=== PATIENT | female | born 1960 | race Caucasian/White ===

== ENCOUNTER 2022-07-11 04:08 | Emergency (ER) | payer MEDICARE, OTHER ==
[~2022-07-11] VITALS: Ht 149.9 cm; Wt 40.8 kg
[~2022-07-11 04:08] MED LIST: NORCO 10-325 T1 EACH PO; NORCO 5-325 TA1 EACH PO
[2022-07-11] MEDS ORDERED: CYCLOBENZAPRINE10 MG PO ×2 (05:53→06:17)
== END 2022-07-11 06:01 | disposition home or self-care (01) ==
LOC: ED 04:08
DX: S16.1XXA Strain of muscle, fascia and tendon at neck level, initial encounter (principal); W18.2XXA Fall in (into) shower or empty bathtub, initial encounter; F17.200 Nicotine dependence, unspecified, uncomplicated
CPT/HCPCS: 72040; 96372; 99283-25; J1885; J3360

== ENCOUNTER 2023-08-23 16:11 | Emergency (ER) | payer MEDICARE, OTHER ==
[~2023-08-23] VITALS: Ht 149.9 cm; Wt 38.6 kg
[~2023-08-23 16:11] MED LIST changes: +CYCLOBENZAPRINE10 MG PO
--- OUTSIDE RECORDS SUMMARY | 2023-08-23 16:14 | XMS ---
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 E.DSultana VISIT COUNT (12 MO.) 3 Stoney Cope) 1 OCTAVIO Marie TOTAL 4 NOTE: Visits indicate total known visits. ED/UCC VISIT TRACKING (12 MO.) 08/23/2023 16:12 [facility] [place] TYPE: Emergency COMPLAINT: - SKIN PROBLEM 02/28/2023 10:09 [facility] Anatoliy [facility]ART[facility] (Anatoliy Cope) TYPE: Emergency DIAGNOSES: - Cervicalgia - ambulance - Neck Pain 02/07/2023 06:38 [facility]at[facility]y [facility] (Anatoliy Cope) TYPE: Emergency DIAGNOSES: - Migraine without aura, intractable, with status migrainosus - Headache (Adult - Recurrent Or Known Dx Migraines) 10[facility]30[facility]2022 10:[facility] TYPE: Emergency DIAGNOSES: - Pain in unspecified hip - Strain of muscle, fascia and tendon at neck level, initial encounter - Neck Pain INPATIENT VISIT TRACKING (12 MO.) No inpatient visits to display in this time frame [email or web address]
[2023-08-23] MEDS ORDERED: VISTARIL25 MG PO (16:39)
[2023-08-23 16:57] VITALS: BP 130/80
== END 2023-08-23 16:58 | disposition home or self-care (01) ==
LOC: ED 16:11
DX: L50.9 Urticaria, unspecified (principal); F17.200 Nicotine dependence, unspecified, uncomplicated

== ENCOUNTER 2023-11-15 09:27 | Emergency (ER) | payer MEDICARE, OTHER ==
[~2023-11-15] VITALS: Ht 149.9 cm; Wt 38.5 kg
[~2023-11-15 09:27] MED LIST changes: +VISTARIL25 MG PO
[2023-11-15] MEDS ORDERED: NEURONTIN300 MG PO (09:42)
[2023-11-15] MEDS ORDERED: HYDROCODON-ACE1 EA10 PO (10:26)
[2023-11-15] MEDS ORDERED: IBUPROFEN 400 MG TAB PO ONE (10:30)
[2023-11-15] MEDS ORDERED: ACETAMINOPHEN 325 MG TAB PO ONE (10:30)
[2023-11-15 10:38] VITALS: BP 149/84
== END 2023-11-15 10:38 | disposition home or self-care (01) ==
LOC: ED 09:27
DX: S92.414A Nondisplaced fracture of proximal phalanx of right great toe, initial encounter for closed fracture (principal); W10.9XXA Fall (on) (from) unspecified stairs and steps, initial encounter; F17.200 Nicotine dependence, unspecified, uncomplicated; Z79.899 Other long term (current) drug therapy
CPT/HCPCS: 73630; 99283-25

== ENCOUNTER 2025-08-26 21:14 | Emergency (ER) | payer MEDICARE, OTHER ==
[~2025-08-26] VITALS: Ht 149.9 cm; Wt 40.0 kg
[~2025-08-26 21:14] MED LIST changes: +HYDROCODON-ACE1 EA10 PO; +NEURONTIN300 MG PO
[2025-08-26] MEDS ORDERED: ASPIRIN 81 MG CHEW PO ONE (21:30)
[2025-08-26 21:36] LABS: BASOPHILS 0.5 % (0.1-1.2); EOSINOPHILS 3.2 % (0.7-5.8); LYMPHOCYTES 35.7 % (19.3-51.7); MCH 29.4 PG (25.6-32.2); MCHC 31.7 g/dL (32.2-35.5); MCV 92.8 fL (79.4-94.8); MONOCYTES 7.5 % (4.7-12.5); NEUTROPHILS 52.8 % (34.0-71.1); RBC 4.56 M/uL (3.93-5.22)
[2025-08-26] MEDS ORDERED: FAMOTIDINE 20 MG/ 2 ML VIAL IV ONE (22:15)
[2025-08-26] MEDS ORDERED: LACTATED RINGER'S 1,000 ML IV ONE (22:15)
[2025-08-26 22:21] LABS: ALT (SGPT) 14.0 U/L (14-59); AST (SGOT) 14.0 U/L (15-37); GLOMERULAR FILTRATION RATE,EST 80.0 mL/min (>60); PROTEIN, TOTAL 6.7 g/dL (6.4-8.2); UREA NITROGEN 17.0 mg/dL (7-18)
[2025-08-26 22:55] LABS: BLOOD/HGB, URINE NEGATIVE (Negative); KETONE, URINE NEGATIVE (Negative); LEUK ESTERASE, URINE NEGATIVE (negative); NITRITE, URINE POSITIVE (negative)
[2025-08-26 23:00] LABS: EPITHELIAL CELLS, URINE SQUAMOUS 1+ /lpf (0-1+)
[2025-08-26 23:01] LABS: CRYSTALS, URINE AMORPHOUS PHOSPH 3+ (0-1+)
[2025-08-26 23:02] LABS: BACTERIA, URINE 1+ /hpf (negative); CASTS, URINE NONE SEEN \\lpf; REFLEX CULTURE, URINE No (No)
[2025-08-26 23:12] LABS: AMPHETAMINES, URINE POSITIVE (NEGATIVE); BARBITURATES, URINE NEGATIVE (NEGATIVE); BENZODIAZEPINE, URINE NEGATIVE (NEGATIVE); CANNABINOID, URINE NEGATIVE (NEGATIVE); COCAINE, URINE NEGATIVE (NEGATIVE); ECSTASY, URINE NEGATIVE (NEGATIVE); FENTANYL, URINE NEGATIVE (NEGATIVE); METHADONE, URINE NEGATIVE (NEGATIVE); OPIATES, URINE NEGATIVE (NEGATIVE); OXYCODONE, URINE NEGATIVE (NEGATIVE); PHENCYCLIDINE, URINE NEGATIVE (NEGATIVE)
[2025-08-26] MEDS ORDERED: MACROBID 100 M100 MG PO (23:37)
[2025-08-26] MEDS ORDERED: NITROFURANTOIN MONOHYD MACROCR 100 MG HOME.PACK PO ONE (23:45)
[2025-08-26 23:56] VITALS: BP 122/64
--- NOTE | 2025-08-29 22:07 | EKG ---
[facility] [address] [place] [address] Signed Normal sinus rhythm Normal ECG When compared with ECG of 18-MAR-2024 11:03, No significant change was found Confirmed by Megan Guevara MD () on 08/29/2025 10:07:08 PM Electronically Signed By: MEGAN GUEVARA MD 08/29/25 [id number] PATIENT NAME: SHIRA OLIVEIRA Electrocardiogram DATE OF : 56 PHYSICIAN: MEGAN GUEVARA MD REPORT #: [id number] REPORT IS CONFIDENTIAL AND NOT TO BE RELEASED WITHOUT AUTHORIZATION
== END 2025-08-26 23:57 | disposition home or self-care (01) ==
LOC: ED 21:14
PROVIDERS: Internal Medicine
DX: R07.2 Precordial pain (principal); F15.10 Other stimulant abuse, uncomplicated; N39.0 Urinary tract infection, site not specified; F17.200 Nicotine dependence, unspecified, uncomplicated
CPT/HCPCS: 36415; 71045; 80053; 80307; 81001; 83735; 84443; 84484; 85025; 87077; 87088; 87186; 93005; 93010; 96374; 99285-25; A9270; J7121